=== PATIENT | female | born 1990 ===

== ENCOUNTER 2017-05-17 05:46 | Inpatient (IN) ==
[2017-05-17] MEDS ORDERED: ONDANSETRON 4 MG/2 ML VIAL IV PRN ×2 (06:05→20:45)
[2017-05-17] MEDS ORDERED: LACTATED RINGERS 500 ML IV PRN (06:05)
[2017-05-17] MEDS ORDERED: BUTORPHANOL 2 MG/ML VIAL IV PRN (06:05)
[2017-05-17] MEDS ORDERED: MEPERIDINE 50 MG/1 ML VIAL IV PRN (06:05)
[2017-05-17] MEDS ORDERED: OXYTOCIN/LR 20 UNIT/1,000 ML BAG IV SCH (06:30)
[2017-05-17 06:46] LABS: Basophils % 0.2 % (0.0-0.8); Eosinophils % 0.2 % (0.00-10.9); Hematocrit 35.1 VOL% (35.7-47.0); Hemoglobin 11.9 GM/DL (12.0-16.0); Immature Granulocytes % 0.5 %; Immature Granulocytes Absolute 0.04 #; Lymphocytes # 1.2 10*3/uL (1.4-4.0); Lymphocytes % 14.2 % (21.3-54.2); Mean Corpuscular HGB Conc 33.9 GM/DL (32-36); Mean Corpuscular Hemoglobin 30 PG (27-34); Mean Corpuscular Volume 88.2 FL (87-102); Mean Platelet Volume 10.6 FL (9.6-12.0); Monocytes # 0.6 10*3/uL (0.11-0.8); Monocytes % 7.3 % (1.7-12.7); Neutrophils # 6.4 10*3/uL (1.4-7.4); Neutrophils % 77.6 % (38.7-73.9); Platelet Count 316 T/CUMM (130-400); Red Blood Count 3.98 MC/CUMM (3.8-5.5); Red Cell Distribution Width 13.3 % (9.3-17.3); White Blood Count 8.3 T/CUMM (4-12)
[2017-05-17] MEDS: LACTATED RINGERS 1,000 ML IV SCH ×2 (06:47→16:11)
[2017-05-17] MEDS ORDERED: AMPICILLIN INJ 2,000 MG in SODIUM CHLORIDE 0.9% 100 ML IV ONE (07:04)
[2017-05-17] MEDS ORDERED: ePHEDrine 50 MG/ML AMP IV PRN (09:06)
[2017-05-17] MEDS ORDERED: diphenhydrAMINE 50 MG/1 ML VIAL IV PRN ×2 (09:06)
[2017-05-17] MEDS ORDERED: hydrOXYzine HCL 25 MG/1 ML VIAL IM PRN (09:06)
[2017-05-17] MEDS ORDERED: CITRIC ACID/SODIUM CITRATE 30 ML UDCUP PO ONE (09:06)
[2017-05-17] MEDS ORDERED: LACTATED RINGERS 1,000 ML IV ONE (09:06)
[2017-05-17] MEDS ORDERED: PROMETHAZINE 25 MG/1 ML VIAL IM ONE (09:06)
[2017-05-17] MEDS ORDERED: FAMOTIDINE 20 MG/2 ML VIAL IV ONE (09:06)
[2017-05-17] MEDS ORDERED: fentaNYL 2 MCG/ROPIV 0.2% EPID 150 ML EPIDURAL SCH (09:30)
[2017-05-17] MEDS ORDERED: AMPICILLIN INJ 1,000 MG in SODIUM CHLORIDE 0.9% 100 ML IV SCH (11:00)
[2017-05-17 11:40] LABS: Apearance,Urine CLEAR (Clear); Bilirubin,Urine Negative (Negative); Blood, Urine Negative (Negative); Glucose,Urine (UA) Negative (Negative); Ketones,Urine 5 mg/dL (Negative); Mucus,Urine Occasional /LPF (Occasional); Nitrite,Urine Negative (Negative); Protein,Urine 30 MG/DL; RBC,Urine 1 /HPF (0-4); Squamous Epithelial Cell,Urine Occasional /HPF (0-10); Urine Color Yellow (Yellow); Urine Specific Gravity 1.023 (1.001-1.035); Urine Urobilinogen < 2.0 EU/DL (0.2-1.0); WBC,Urine 1 /HPF (0-6)
[2017-05-17] MEDS ORDERED: LIDOCAINE 1% 50 ML VIAL ONE (17:27)
[2017-05-17] MEDS ORDERED: METHYLERGONOVINE 0.2 MG/1 ML AMP ONE (17:27)
[2017-05-17] MEDS ORDERED: miSOPROStol 200 MCG TABLET ONE ×2 (17:27→17:28)
[2017-05-17 18:22] LABS: Cord Arterial Blood HCO3 19.9 MMOL/L
[2017-05-17 18:26] LABS: Cord Venous Blood HCO3 20.6 MMOL/L; Cord Venous Blood PCO2 50.9 MMHG; Cord Venous Blood PO2 21.7
[2017-05-17] MEDS ORDERED: BISACODYL 10 MG SUPP RECTAL PRN (20:45)
[2017-05-17] MEDS ORDERED: WITCH HAZEL PADS 100/JAR TOP PRN (20:45)
[2017-05-17] MEDS ORDERED: DIPH/TET/ACEL PERT BOOSTER VACCINE 0.5 ML VIAL IM ONE (20:45)
[2017-05-17] MEDS ORDERED: RHO(D) IMMUNE GLOBULIN 300 MCG SYRINGE IM ONE (20:45)
[2017-05-17] MEDS ORDERED: oxyCODONE/ACETAMINOPHEN 5-325 MG TABLET PO PRN ×2 (20:45)
[2017-05-17] MEDS ORDERED: ACETAMINOPHEN 325 MG TABLET PO PRN (20:45)
[2017-05-17] MEDS ORDERED: HYDROCORTISONE 2.5% RECTAL CREAM 30 GM TUBE TOP PRN (20:45)
[2017-05-17] MEDS ORDERED: LANOLIN 50% CREAM 0.3 OZ TUBE TOP PRN (20:45)
[2017-05-17] MEDS ORDERED: OXYTOCIN/LR 20 UNIT/1,000 ML BAG IV ONE (20:45)
[2017-05-17] MEDS ORDERED: MEASLES/MUMPS/RUBELLA VACCINE 0.5 ML VIAL SUBCUT ONE (20:45)
[2017-05-17] MEDS ORDERED: BENZOCAINE 20%/MENTHOL 0.5% SPRAY 56 GM CAN TOP PRN (20:45)
[2017-05-17] MEDS: DOCUSATE SODIUM 100 MG CAPSULE PO SCH (20:56)
[2017-05-17] MEDS: IBUPROFEN 800 MG TABLET PO PRN (20:56)
[2017-05-18] MEDS: IBUPROFEN 800 MG TABLET PO PRN ×2 (02:10→16:11)
[2017-05-18 03:35] LABS: Basophils % 0.2 % (0.0-0.8); Eosinophils % 0.1 % (0.00-10.9); Hematocrit 32.3 VOL% (35.7-47.0); Hemoglobin 10.7 GM/DL (12.0-16.0); Immature Granulocytes % 0.5 %; Immature Granulocytes Absolute 0.05 #; Lymphocytes # 1.4 10*3/uL (1.4-4.0); Mean Corpuscular HGB Conc 33.1 GM/DL (32-36); Mean Corpuscular Hemoglobin 30 PG (27-34); Mean Corpuscular Volume 89.7 FL (87-102); Mean Platelet Volume 10.7 FL (9.6-12.0); Monocytes # 1.1 10*3/uL (0.11-0.8); Monocytes % 9.9 % (1.7-12.7); Neutrophils # 8.3 10*3/uL (1.4-7.4); Neutrophils % 76.3 % (38.7-73.9); Platelet Count 272 T/CUMM (130-400); Red Cell Distribution Width 13.1 % (9.3-17.3); White Blood Count 10.8 T/CUMM (4-12)
[2017-05-18] MEDS: DOCUSATE SODIUM 100 MG CAPSULE PO SCH ×2 (09:04→21:10)
[2017-05-19 07:18] VITALS: BP 125/72
[2017-05-19] MEDS: DOCUSATE SODIUM 100 MG CAPSULE PO SCH (10:08)
[2017-05-19] MEDS: IBUPROFEN 800 MG TABLET PO PRN (12:17)
== END 2017-05-19 13:00 | disposition home or self-care (01) | DRG 775 ==
LOC: N.LDOUT 05:46 → N.LD 05:54 → N.OB 20:46
PROVIDERS: ADMIT Obstetrics & Gynecology; ATTEND Obstetrics & Gynecology